=== PATIENT | male | born 1990 | race African-American/Black ===

== ENCOUNTER 2022-12-06 01:52 | Emergency (ER) | payer MEDICAID ==
--- NOTE | 2022-12-06 02:40 | NUR ---
Called - no show in lobby or outside
--- NOTE | 2022-12-06 03:00 | NUR ---
CALLED TO TRIAGE, NO ANSWER
--- NOTE | 2022-12-06 03:16 | NUR ---
CALLED TO TRIAGE, NO ANSWER. PT LWBS
== END 2022-12-06 03:16 | disposition left against medical advice (07) ==
LOC: MED 01:52
DX: Z53.21 Procedure and treatment not carried out due to patient leaving prior to being seen by health care provider (principal)